=== PATIENT | female | born 1950 | race Caucasian/White ===

== ENCOUNTER 2018-08-03 11:30 | Day surgery (SDC) | payer BC ==
[2018-08-03] MEDS ORDERED: PROPOFOL 10 MG/ML VIAL IV ONE (11:31)
--- NOTE | 2018-08-04 09:50 | Operative Note ---
DATE OF SURGERY: 08/03/2018 OPERATION: COLONOSCOPY to the cecum with cold biopsy forceps polypectomy x1. INDICATION: History of adenomatous polyps. The patient returns at this time after 5 years for surveillance colonoscopy. ANESTHESIA: Intravenous sedation was administered by the department of anesthesiology and included Diprivan titrated to effect. PROCEDURE: Following informed consent from this alert individual including a discussion of the risks and benefits of the procedure and an opportunity for the patient to ask questions, the patient was in the left lateral decubitus position. A digital rectal examination was performed. No abnormalities were noted. Following this, the Olympus [id number] video colonoscope was inserted into the rectum without resistance. The rectal mucosa had a normal appearance with normal folds and distensibility. The colonoscope was advanced up through the bowel to the level of the cecum without much difficulty. Throughout the bowel the mucosa appeared normal, the folds were normal, and the bowel was fairly well distensible. The cecum was defined by noting the appendiceal orifice and ileocecal valve. The terminal ileum was briefly cannulated and found to be unremarkable. From the base of the cecum, the colonoscope was then withdrawn. In the transverse colon, there was a diminutive 3-4 mm polyp noted which was removed with application of cold biopsy forceps. No other changes were noted. Retroflexion in the rectum was endoscopically unremarkable. The endoscope was straightened and removed. The patient tolerated the procedure well and was returned to the recovery area in stable condition. IMPRESSION: 1. Diminutive 3-4 mm polyp removed from the transverse colon. 2. Otherwise unremarkable colonoscopy to the cecum. RECOMMENDATIONS: The patient was advised that further recommendations will be forthcoming pending results of pathology obtained today. Followup will be with Dr. Luis Mccain as well. As always, thank you for allowing me to participate in the care of your patient. CC: DO CORINE Medina
== END 2018-08-03 13:35 | disposition home or self-care (01) ==
LOC: HOP 11:30
PROVIDERS: ATTEND Internal Medicine Gastroenterology
DX: Z12.11 Encounter for screening for malignant neoplasm of colon (principal); Z86.010 Personal history of colon polyps; D12.3 Benign neoplasm of transverse colon; E11.9 Type 2 diabetes mellitus without complications; E78.00 Pure hypercholesterolemia, unspecified; I10 Essential (primary) hypertension; K21.9 Gastro-esophageal reflux disease without esophagitis; N32.81 Overactive bladder